=== PATIENT | female | born 1940 | race Caucasian/White ===

== ENCOUNTER → 2018-01-03 08:35 | Outpatient (CLI) | payer MEDICARE, BC | END | disposition home or self-care (01) | LOC: D.NM 08:35 | DX: E83.52 Hypercalcemia (principal) ==

== ENCOUNTER → 2019-12-06 17:39 | Outpatient (CLI) | payer MEDICARE, BC | END | disposition home or self-care (01) | LOC: D.LABREF 17:39 | PROVIDERS: ATTEND Orthopaedic Surgery | DX: M17.12 Unilateral primary osteoarthritis, left knee (principal) ==

== ENCOUNTER 2019-12-10 13:05 | Inpatient (IN) | payer MEDICARE, BC ==
[~2019-12-10] VITALS: Ht 166.4 cm; Wt 68.2 kg
[2019-12-11] MEDS ORDERED: ALENDRONATE SOD35 MG PO (11:35)
[2019-12-11] MEDS ORDERED: BUMETANIDE0.5 MG PO (11:46)
[2019-12-11] MEDS ORDERED: CARTIA XT240 MG PO (11:47)
[2019-12-11] MEDS ORDERED: CANDESARTAN PO (11:47)
[2019-12-11] MEDS ORDERED: LANOXIN125 MCG PO ×2 (11:48)
[2019-12-11] MEDS ORDERED: VITAMIN D PO (11:50)
[2019-12-11] MEDS ORDERED: ADVAIR 250-501 EAC1 INH (11:50)
[2019-12-11] MEDS ORDERED: FLUTICASONE PRO16 GM NASAL (11:50)
[2019-12-11] MEDS ORDERED: SINGULAIR10 MG PO (11:51)
[2019-12-11] MEDS ORDERED: KLOR-CON M2020 MEQ PO (11:51)
[2019-12-11] MEDS ORDERED: JANTOVEN5 MG PO (11:52)
[2019-12-11] MEDS ORDERED: JANTOVEN2.5 MG PO (11:52)
[2019-12-11] MEDS ORDERED: SALINE INH (11:53)
[2019-12-12 11:49] LABS: BASOPHILS 0.3 % (0-2); EOSINOPHILS 3.6 % (0-7); HEMATOCRIT 38.2 % (36.0-48.0); HEMOGLOBIN 12.4 g/dL (12-16); IMMATURE GRANULOCYTES 0.2 % (0-5); LYMPHOCYTES 25.2 % (15-50); MCHC 32.5 g/dL (31.0-37.0); MCV 89.5 fL (80.0-100.0); MEAN PLATELET VOLUME 9.2 fL (7.4-10.4); MONOCYTES 6.5 % (2-11); NEUTROPHILS 64.2 % (40-80); PLATELET COUNT 159 10x3/uL (130-400); RBC 4.27 10x6/uL (4.00-5.40); RDW 13.1 % (11.5-14.5)
--- NOTE | 2019-12-12 11:51 | NUR ---
PANS VITALS 146/61, P. 77, P.OX 98%, TEMP. 99.0
[2019-12-12 11:53] LABS: BILIRUBIN NEGATIVE (NEGATIVE); KETONE NEGATIVE (NEGATIVE); NITRITE NEGATIVE (NEGATIVE); UROBILINOGEN NORMAL (NORMAL)
[2019-12-12 12:04] LABS: APTT 46.8 SECONDS (22.8-39.4); INR 2.29 (0.85-1.17); PROTIME 24.9 SECONDS (11.6-15.0)
[2019-12-12 12:07] LABS: CALCIUM 9.8 mg/dL (8.5-10.1); CARBON DIOXIDE 30.4 mmol/L (21.0-32.0); CREATININE - SERUM 0.9 mg/dL (0.6-1.3); POTASSIUM - SERUM 3.4 mmol/L (3.5-5.1)
[2019-12-18] VITALS (8 sets, daily range): BP systolic 129–141; BP diastolic 59–65; Ht 166.4 cm; Wt 68.2 kg
[2019-12-18] MEDS ORDERED: LOVENOX80 MG/0.8 SC (09:29)
[2019-12-18 10:17] LABS: APTT 32.4 SECONDS (22.8-39.4); INR 1.14 (0.85-1.17); PROTIME 14.6 SECONDS (11.6-15.0)
--- NOTE | 2019-12-18 12:55 | NUR ---
TRHOUGH TRAFFIC KEPT TO A MINIMUM. HIBACLENS AND ALCOHOL USED TO CLEAN BEFORE PREPPING. STERILE GOWNED AND GLOVED TO PREP WITH CHLORAPREP.
--- NOTE | 2019-12-18 20:00 | NUR ---
ALERT RESTING IN BED WITH CPM IN USE, DENIES PAIN OR NEEDS AT THIS TIME, SEE SHIFT ASSESSMENT, CALL LIGHT IN REACH, DAUGHTER AT BEDSIDE
[2019-12-19] VITALS: BP 132/63
[2019-12-19 04:45] VITALS: BP 130/25; BP 130/65
[2019-12-19 06:49] LABS: BASOPHILS 0.2 % (0-2); EOSINOPHILS 3.3 % (0-7); HEMOGLOBIN 9.6 g/dL (12-16); IMMATURE GRANULOCYTES 0.2 % (0-5); LYMPHOCYTES 18.1 % (15-50); MCH 29.2 pg (26.0-34.0); MCV 91.2 fL (80.0-100.0); MEAN PLATELET VOLUME 9.6 fL (7.4-10.4); MONOCYTES 8.8 % (2-11); NEUTROPHILS 69.4 % (40-80); RBC 3.29 10x6/uL (4.00-5.40); RDW 13.4 % (11.5-14.5); WBC 5.5 10x3/uL (4.8-10.8)
[2019-12-19 07:01] LABS: PLATELET COUNT 124 10x3/uL (130-400)
[2019-12-19 07:10] LABS: ANION GAP 11.9 mmol/L (8-16); CALCIUM 8.8 mg/dL (8.5-10.1); CARBON DIOXIDE 26.2 mmol/L (21.0-32.0); CREATININE - SERUM 0.8 mg/dL (0.6-1.3); MAGNESIUM - SERUM 1.8 mg/dL (1.8-2.4); POTASSIUM - SERUM 4.1 mmol/L (3.5-5.1)
--- NOTE | 2019-12-19 08:11 | OP ---
PATIENT NAME: ANSELMO CLEANING SEPTEMBER MEDICAL RECORD: [id number] :42 LOCATION:D.M3 D.1210 ADMISSION DATE:12/18/19 SURGEON: ALDO RIVERA DO DATE OF OPERATION: 12/18/2019 PROCEDURE PERFORMED: Left total knee arthroplasty. PREOPERATIVE DIAGNOSIS: Left knee osteoarthritis. POSTOPERATIVE DIAGNOSIS: Left knee osteoarthritis. INDICATIONS: Ms. Cleaning is a 79-year-old female who has been getting injections for quite some time in her knees and has tried all manner of nonoperative treatment to no avail. She has wanted to have surgery as it affecting her activities of daily living, is quite painful. I informed her of the risks including infection, bleeding, fracture, damage to nerves and vessels in the area, continued pain, arthrofibrosis, blood clots, and even and she signed a consent. SURGEON: Aldo Rivera DO ROCK WOOL APPLICATOR: Johan Solis, certified surgical elastic knitter hand frame. DESCRIPTION OF PROCEDURE: The patient was given a block by anesthesia in the preoperative area and was given 1.25 grams of vancomycin and a gram of TXA, and taken to the operative suite, laid in supine position, given general anesthetic and LMA was placed. The left lower extremity was then prepped and draped in sterile fashion. Timeout was performed. Everyone was in agreement with correct side, site, patient and procedure. I then began by marking out the incision, covered in Ioban, I then used 10-blade scalpel to go through the skin down to the capsule. Used a new 10 blade to do a medial parapatellar approach and then everted the patella, removed some of the fat pad and milled down the patella, then flexed the knee and went to the femoral canal and cut the distal femur off the intramedullary guide. I then went to the proximal tibia and through the guide resected the proximal tibia as well. I then removed the menisci, brought the knee to extension and coagulating bleeders with Aquamantys. A 10 extension block fit well. I then removed the pins from the tibial cutting guide and then flexed the knee, upsized the femur to be a 67.5. I used the 4-in-1 cutting block and gerard wing to ensure there was no notching. I then cut through the 4-in-1 cutting block and removed the bone. We then put on the trial and put in a 10 poly on the tibial tray and ranged and marked the rotation. We then removed the tray and put the guide through the patella and drilled holes through that and then also lug holes on the femur. I then exposed the tibia, sized it to be a 71. This was pinned into place and then reamed and punched and then put extra holes for this cement. The cement was then mixed. I irrigated the tibia and the femur and put the cement on the implant and then in the tibia as well. I then impacted the tibial tray into place and removed the excess cement. I then impacted on the femur, put a 12 poly in between, brought to extension and then cleaned off the patella and cleaned out the holes with a curette. I then put in cement in the holes in the patella and then put the patellar implant on, squeezing it in place, removed the excess cement. After removing the excess cement, put in the 10% povidone-iodine with 500 mL of normal saline solution, let it sit in the knee for 3 minutes and irrigated out with 1 liter normal saline. Once the cement had dried, a 12 poly fit very well. Decided to go with a 12 anterior stabilized poly and put that in and locked it into place. Once it OPERATIVE REPORT [id number] ANSELMO CLEANIGN was locked into place, irrigated the knee one more time. Put in Fernando powder and vancomycin-tobramycin powder. I then closed the capsule with #1 Vicryl in a [id number] fashion. This was done by myself and Johan Solis, certified surgical elastic knitter hand frame. Johan then closed the skin with 2-0 Vicryl in inverted interrupted fashion, put on the ZipLine, Adaptic, 4 x 4s, ABD, Webril, Joe wrap from the knee and then JOLENE hose stocking up to the knee. She was then awakened, taken to recovery room in stable condition. Blood loss was approximately 200 mL. COMPLICATIONS: None. TRANSINT:[id number] Voice Confirmation ID: [id number] DOCUMENT ID: [id number] ALDO RIVERA DO at 0811 CC: [id number] DICTATION DATE: 12/18/19 1238 GROUNDSMAN: 12/18/19 2154 ADM IN [place] [id number] [place] [id number]
[2019-12-19 08:47] VITALS: BP 101/56
[2019-12-19] MEDS ORDERED: HYDROCODON-ACE1 EA10 PO (11:54)
[2019-12-19] MEDS ORDERED: ZOFRAN ODT4 MG/UDTAB PO (11:55)
[2019-12-19] MEDS ORDERED: MONODOX100 MG PO (11:55)
--- NOTE | 2019-12-19 14:04 | MORECARE ---
CASE MANAGEMENT DISCHARGE SUMMARY PATIENT: ANSELMO CLEANING SEPTEMBER UNIT: [id number] ADM DATE: 12/18/19 AGE: 79 : 41 SEX: F ROOM/BED: D.1210 AUTHOR: KARMA KELLOGG PHYSICIAN: REFERRING PHYSICIAN: RYLIE RIVERA DO DATE OF SERVICE: 12/19/19 Discharge Plan Patient Name: ANSELMO CLEANING Facility: [facility]:[place] : 1940 Planned Disposition: Home Health Service Anticipated Discharge Date: 12/19/19 Discharge Date: Expected LOS: 1 Initial Reviewer: [email or web address] Initial Review Date: 12/19/2019 Generated: 12/19/19 3:04 pm DCPIA - Discharge Planning Initial Assessment Updated by [email or web address]: Mony Patel on 12/19/19 2:01 pm * Is the patient Alert and Oriented? Yes * How many steps to enter\exit or inside your home? * PCP Dr. Keys * Pharmacy [facility] on [address] * Preadmission Environment Home with Family * ADLs Independent * Equipment Bedside Commode Glucometer Grab Bars Rolling Walker Shower Chair * Other Equipment CPM, Ice machine, hand held shower head. * List name and contact numbers for known caregivers / representatives who currently or will assist patient after discharge: Liliana Pedersen, daughter, * Verbal permission to speak to the caregivers and representatives has been obtained from the patient. Yes * Community resources currently utilized Other * Please name any agencies selected above. [facility] * Additional services required to return to the preadmission environment? Yes * Can the patient safely return to the preadmission environment? Yes * Has this patient been hospitalized within the prior 30 days at any hospital? No External Providers External Provider: [facility] Next Contact Date: Service Request Date: Service Type: Resolution: Reviewer: Comments: Patient Name: ANSELMO CLEANING Page [phone] at 1404 All edits/amendments must be made on the electronic document DICTATION DATE: 12/19/19 1404 DAYCARE MANAGER: MARTY 12/19/19 1404 RPT#: [id number] DC DATE: STATUS: ADM IN [facility] [address] [place] [address] END OF REPORT
--- NOTE | 2019-12-19 14:12 | MORECARE ---
CASE MANAGEMENT DISCHARGE SUMMARY PATIENT: ANSELMO CLEANING SEPTEMBER UNIT: [id number] ADM DATE: 12/18/19 AGE: 79 : 41 SEX: F ROOM/BED: D.1210 AUTHOR: BESS,DOC PHYSICIAN: REFERRING PHYSICIAN: RYLIE RIVERA DO DATE OF SERVICE: 12/19/19 Discharge Plan Patient Name: ANSELMO CLEANING Facility: [facility]:[place] : 1940 Planned Disposition: Home Health Service Anticipated Discharge Date: 12/19/19 Discharge Date: Expected LOS: 1 Initial Reviewer: [email or web address] Initial Review Date: 12/19/2019 Generated: 12/19/19 3:11 pm Comments DCP- Discharge Planning Updated by [id number]: Mony Patel on 12/19/19 1:[address] Patient Name: ANSELMO CLEANING Admission Status: Elective Accout number: [id number] Admission Date: 12-18-2019 : 1940 Admission Diagnosis:UNILATERAL PRIMARY OSTEOARTHRITIS, LEFT KNEE Attending: RYLIE RIVERA Current LOS: 1 Anticipated DC Date: 12-19-2019 Planned Disposition: Home Health Service Primary Insurance: MEDICARE A & B Discharge Planning Comments: After obtaining verbal consent, CM met with patient and daughter about discharge planning / needs. Patient states she plans to stay at her daughter's house ([facility] [address], [facility]) while she is recovering from surgery. States her has Parkinson's and her 4 daughters will rotate each week taking turns helping patient and her . States the home environment is safe. Denies any concerns about discharging to her daughter's home today. States she will us [facility] for Physical Therapy. Patient signed ZOË for [facility] and [facility]. States [facility] has already delivered her CPM, BSC, and Ice Machine to the home. She has her walker here with her at the hospital. Denies any other discharge planning needs at this time. States her daughter will drive her home upon DC. CM called [facility], spoke with Pauline. Agency will admit patient tomorrow. CM faxed orders and copy of records as requested. CM will continue to follow and assist as needed with discharge planning / needs. Plush Brusher: Mony Patel DCPIA - Discharge Planning Initial Assessment Updated by [email or web address]: Mony Patel on 12/19/19 2:01 pm * Is the patient Alert and Oriented? Yes * How many steps to enter\exit or inside your home? * PCP Dr. Keys * Pharmacy [facility] on [address] * Preadmission Environment Home with Family * ADLs Independent * Equipment Bedside Commode Glucometer Grab Bars Rolling Walker Shower Chair * Other Equipment CPM, Ice machine, hand held shower head. * List name and contact numbers for known caregivers / representatives who currently or will assist patient after discharge: Liliana Pedersen, daughter, * Verbal permission to speak to the caregivers and representatives has been obtained from the patient. Yes * Community resources currently utilized Other * Please name any agencies selected above. [facility], [facility] * Additional services required to return to the preadmission environment? Yes * Can the patient safely return to the preadmission environment? Yes * Has this patient been hospitalized within the prior 30 days at any hospital? No Coverage Notice Reviewer: [id number] - Mony Patel Notice Issued Date-Time: 12/19/2019 13:33 Notice Type: Patient Choice Letter Notice Delivered To: Patient Relationship to Patient: Self Shell Worker Name: Delivery Method: HAND - Hand Delivered Coleen Days: Prior Verbal Notification: Recipient Understood Notice: Yes Recipient Signature: Yes Med Rec Note Co-signed by Attending: Coverage Notice Comment: [facility] and [facility] Last DP export: 12/19/19 1:04 pm Patient Name: ANSELMO CLEANING Page 53480 at 1412 All edits/amendments must be made on the electronic document DICTATION DATE: 12/19/19 1412 CAPTAIN WAITER/WAITRESS: MARTY 12/19/19 1412 RPT#: [id number] DC DATE: STATUS: ADM IN [facility] [address] [place] [address] END OF REPORT
--- NOTE | 2019-12-19 15:26 | NUR ---
DISCHARGE PAPERWORK SIGNED, ALL QUESTIONS ANSWERED. IV TO RIGHT AC DC'D, TIP INTACT. ESCORTED OUT VIA WHEELCHAIR.
--- NOTE | 2019-12-19 16:51 | MORECARE ---
CASE MANAGEMENT DISCHARGE SUMMARY PATIENT: ANSELMO CLEANING SEPTEMBER UNIT: [id number] ADM DATE: 12/18/19 AGE: 79 : 41 SEX: F ROOM/BED: D.1210 AUTHOR: KARMA KELLOGG PHYSICIAN: REFERRING PHYSICIAN: RYLIE RIVERA DO DATE OF SERVICE: 12/19/19 Discharge Plan Patient Name: ANSELMO CLEANING Facility: [facility]:[place] : 1940 Planned Disposition: Home Health Service Anticipated Discharge Date: 12/19/19 Discharge Date: 12/19/2019 Expected LOS: 1 Initial Reviewer: [email or web address] Initial Review Date: 12/19/2019 Generated: 12/19/19 5:50 pm Comments DCP- Discharge Planning Updated by [email or web address]: Mony Patel on 12/19/19 1:[address] Patient Name: ANSELMO CLEANING Admission Status: Elective Accout number: [id number] Admission Date: 12-18-2019 : 1940 Admission Diagnosis:UNILATERAL PRIMARY OSTEOARTHRITIS, LEFT KNEE Attending: RYLIE RIVERA Current LOS: 1 Anticipated DC Date: 12-19-2019 Planned Disposition: Home Health Service Primary Insurance: MEDICARE A & B Discharge Planning Comments: After obtaining verbal consent, CM met with patient and daughter about discharge planning / needs. Patient states she plans to stay at her daughter's house ([facility] [address], [facility]) while she is recovering from surgery. States her has Parkinson's and her 4 daughters will rotate each week taking turns helping patient and her . States the home environment is safe. Denies any concerns about discharging to her daughter's home today. States she will us [facility] for Physical Therapy. Patient signed ZOË for [facility] and [facility]. States [facility] has already delivered her CPM, BSC, and Ice Machine to the home. She has her walker here with her at the hospital. Denies any other discharge planning needs at this time. States her daughter will drive her home upon DC. CM called [facility], spoke with Pauline. Agency will admit patient tomorrow. CM faxed orders and copy of records as requested. CM will continue to follow and assist as needed with discharge planning / needs. Forestry Tree Pruner: Mony Patel DCPIA - Discharge Planning Initial Assessment Updated by [email or web address]: Mony Patel on 12/19/19 2:01 pm * Is the patient Alert and Oriented? Yes * How many steps to enter\exit or inside your home? * PCP Dr. Keys * Pharmacy [facility] on [address] * Preadmission Environment Home with Family * ADLs Independent * Equipment Bedside Commode Glucometer Grab Bars Rolling Walker Shower Chair * Other Equipment CPM, Ice machine, hand held shower head. * List name and contact numbers for known caregivers / representatives who currently or will assist patient after discharge: Liliana Pedersen, daughter, * Verbal permission to speak to the caregivers and representatives has been obtained from the patient. Yes * Community resources currently utilized Other * Please name any agencies selected above. [facility], [facility] * Additional services required to return to the preadmission environment? Yes * Can the patient safely return to the preadmission environment? Yes * Has this patient been hospitalized within the prior 30 days at any hospital? No Coverage Notice Reviewer: [id number] - Mony Patel Notice Issued Date-Time: 12/19/2019 13:33 Notice Type: Patient Choice Letter Notice Delivered To: Patient Relationship to Patient: Self Health Program Analyst Name: Delivery Method: HAND - Hand Delivered Coleen Days: Prior Verbal Notification: Recipient Understood Notice: Yes Recipient Signature: Yes Med Rec Note Co-signed by Attending: Coverage Notice Comment: [facility] Last DP export: 12/19/19 1:12 pm Patient Name: ANSELMO CLEANING Page 39353 at 1651 All edits/amendments must be made on the electronic document DICTATION DATE: 12/19/19 165 OVER THE HORIZON TARGETING SUPERVISOR: MARTY 12/19/19 1650 RPT#: [id number] DC DATE:12/19/19 STATUS: DIS IN [facility] [address] [place] [address] END OF REPORT
== END 2019-12-19 15:26 | disposition home health service (06) | DRG 470 ==
LOC: D.SDCHOLD 12-12 10:00 → D.M3 12-18 07:20 → D.SDCHOLD 12-18 09:30 → D.M3 12-18 13:25 → D.SDCHOLD 12-18 13:40 → D.M3 12-19 15:26
PROVIDERS: Anesthesiology; Family Medicine; ADMIT Orthopaedic Surgery; ATTEND Orthopaedic Surgery
PROC: 0SRD0J9 Replacement of Left Knee Joint with Synthetic Substitute, Cemented, Open Approach (ICD-10-PCS; principal; 2019-12-18 09:30)
DX: M17.12 Unilateral primary osteoarthritis, left knee (principal); E11.9 Type 2 diabetes mellitus without complications; I10 Essential (primary) hypertension; I48.91 Unspecified atrial fibrillation; Z95.0 Presence of cardiac pacemaker